=== PATIENT | female | born 1960 | race Caucasian/White ===

== ENCOUNTER 2020-07-14 15:55 | Inpatient (IN) | payer SELFPAY ==
[2020-07-14] MEDS ORDERED: Aspirin 325 MG TAB ONE (16:58)
[2020-07-14] MEDS ORDERED: Diltiazem HCl 125 MG, Admixture Fee 1 EACH in Sodium Chloride 0.9% 100 ML IVPB SCH (17:00)
[2020-07-14 17:47] LABS: Free T4 (Free Thyroxine) 1.51 ng/dL (0.70-1.48)
--- NOTE | 2020-07-14 18:30 | PDOC.HHP ---
Hospitalist HPI - History of Present Illness A. fib with RVR History of Present Illness: 59-year-old female who went to [place] emergency room with palpitation, patient also reports that 1 week ago when she woke up after sleep she felt palpitation, as if she has panic attack, at that time that palpitation episode spontaneously resolved after several minutes and subsequently she had repeat episode of palpitation and 30 minutes later, Patient symptoms started again today with palpitation, and this time symptoms was not improving, denies any associated chest pain dizziness or syncope. Patient denies any orthopnea PND or leg swelling. Patient denies drinking excessive caffeinated product, At [place] emergency room patient was found with A. fib with RVR and Cardizem drip was started, routine laboratory tests showed elevated T4 and low TSH. Patient denies any previous history of thyroid disorder. ED Course: Patient was started on Cardizem drip 15 mg/h, Patient is given aspirin 325 mg and IV fluid 1 L BP: 123/92, MAP: 102, Pulse: 116, Resp: 23, Temp: 98.4 (Oral), Pain: 0, O2 sat: 98, Time: 07/14/2020 16:08. VITAL SIGNS TueJul 14, 2020 16:47 PURA Gray Cullen BP: 125/93, Pulse: 162, Resp: 20, Pain: 0, O2 sat: 98, Time: 07/14/2020 16:47. Hospitalist ROS - Review of Systems Constitutional: denies: fever, chills, sweats, weakness, malaise, other Eyes: denies: pain, vision change, conjunctivae inflammation, eyelid inflammation, redness, other ENT: denies: ear pain, ear discharge, nose pain, nose discharge, nose congestion, mouth pain, mouth swelling, throat pain, throat swelling, other Respiratory: denies: cough, dry, shortness of breath, hemoptysis, SOB with excertion, pleuritic pain, sputum, wheezing, other Cardiovascular: reports: palpitations. denies: chest pain, orthopnea, paroxysmal noc. dyspnea, edema, light headedness, other Gastrointestinal: denies: nausea, vomiting, abdominal pain, diarrhea, constipation, melena, hematochezia, other Genitourinary: denies: dysuria, frequency, incontinence, hematuria, retention, other Musculoskeletal: denies: neck pain, shoulder pain, arm pain, back pain, hand pain, leg pain, foot pain, other Skin: denies: rash, lesions, arnie, bruising, other - Medication Medications: Allergies No Known Allergies Allergy (Unverified 07/14/20 16:54) Resuscitation Status - Order Detail: 07/14/20 18:24 Resuscitation Status Routine Resuscitation Status: FULL: Full Resuscitation Home medication Aspirin 81 mg daily Prinzide 05/19.51 tablet daily Hospitalist History - Past Medical History Other Medical History: Hypertension - Past Surgical History Other Surgical History: Tubal ligation Past psychiatric history reviewed and negative - Family History Other Family History: No strong family history of premature coronary artery disease stroke or cancer - Social History Other Social History: No history of tobacco alcohol or illicit drug abusePatient lives at home, - Exam General Appearance: NAD, awake alert Eye: PERRL, anicteric sclera ENT: normocephalic atraumatic, no oropharyngeal lesions Neck: supple, symmetric, no JVD, no thyromegaly Heart: no murmur, no gallops, no rubs, irregular Respiratory: CTAB, no wheezes, no rales, no ronchi Gastrointestinal: soft, non-tender, non-distended, normal bowel sounds Extremities: no cyanosis, no clubbing, no edema Skin: normal turgor, no lesions Neurological: no focal deficits Musculoskeletal: normal tone, normal strength Psychiatric: normal affect, normal behavior, A&O x 3 Hospitalist Results - Labs Lab results: Troponin I 0.014 ng/mL (< 0.028) 07/14/20 16:56 Additional comment: CBC with Differential Collection DT: TueJul 14, 2020 12:42 White Blood Cell (WBC) Count 10.0 thou/uL 4.8-10.8 Red Blood Cell (RBC) Count 4.49 mill/uL 4.20-5.40 Hemoglobin 12.8 g/dL 12.0-16.0 Hematocrit 40.2 % 36.0-47.0 Mean Corpuscular Volume 89.7 fL 78.0-98.0 Mean Corpuscular Hemoglobin 28.5 pg 27.0-31.0 Mean Corpuscular HGB CONC 31.7 - L g/dL 32.0-36.0 RBC Distribution Width 12.3 % 11.5-14.5 Platelet Count 329 thou/uL 130-400 Mean Platelet Volume 6.9 - L fL 7.4-10.4 %Neutrophils 55.3 % 42.0-75.0 %Lymphocytes 33.7 % 21.0-51.0 %Monocytes 8.7 % 0.0-10.0 %Eosinophils 1.2 % 0.0-10.0 %Basophils 1.1 - H % 0.0-1.0 #Neutrophils 5.5 thou/uL 1.40-6.50 #Lymphocytes 3.4 thou/uL 1.20-3.40 #Monocytes 0.9 - H thou/uL 0.11-0.59 #Eosinphils 0.1 thou/uL 0.0-0.7 #Basophils 0.1 thou/uL 0.0-0.2 LABORATORY TueJul 14, 2020 13:01 MD Mcqueen Robert Measurement Result Units Range Comprehensive Metabolic Panel Collection DT: TueJul 14, 2020 12:42 Sodium 139 mmol/L 136-145 Potassium 4.7 mmol/L 3.5-5.1 Chloride 105 mmol/L 98-107 Carbon Dioxide 22 - L mmol/L 23-31 Anion Gap 17 mmol/L 10-20 BUN (Urea Nitrogen) 23 - H mg/dL 9.8-20.1 Creatinine 1.06 mg/dL 0.6-1.1 Estimated GFR-MDRD 53 Reference Range for Estimated GFR: Greater than 90 mL/min/1.73 m2 NOTE: The MDRD equation has not been validated for use with the elderly (over 70 years of age), women, patients with serious comorbid condition or persons with extremes of body size, muscle mass, or nutritional status. Glucose 125 - H mg/dL 80-115 Calcium 9.5 mg/dL 7.8-10.44 Bilirubin, Total 0.5 mg/dL 0.2-1.2 Protein, Total 8.7 - H g/dL 6.0-8.3 Albumin 4.4 g/dL 3.4-4.8 Globulin 4.3 - H g/dL 2.4-3.5 Alb/Glob Ratio 1.0 - L g/dL 1.2-2.2 Alkaline Phosphatase 109 U/L 40-110 AST (SGOT) 35 - H U/L 5-34 ALT (SGPT) 36 U/L 8-55 LABORATORY TueJul 14, 2020 13:07 MD Mcqueen Robert Measurement Result Units Range Troponin - I w/ Reflex to [facility] Collection DT: TueJul 14, 2020 12:42 Troponin I Less than 0.010 ng/mL < 0.028 Reference Range 0.00 - 0.028 ng/mL Negative 0.029 - 0.29 ng/mL Indeterminate Greater or Equal to 0.3 ng/mL Strongly suggests [place] LABORATORY TueJul 14, 2020 13:13 MD Mcqueen Robert Measurement Result Units Range B type Natriuretic Peptide Collection DT: TueJul 14, 2020 12:42 B type Natriuretic Peptide 294.4 - H pg/mL 0-100 LABORATORY TueJul 14, 2020 13:19 MD Mcqueen Robert Measurement Result Units Range Thyroid Stimulating Hormone Collection DT: TueJul 14, 2020 12:42 Thyroid Stimulating Hormone 0.1354 - L uIU/mL 0.35-4.94 - EKG Interpretation EK lead EKG shows, atrial fibrillation with rapid ventricular response, Rate (beats per minute): 163, ST segments normal, T waves, [place] normal, afib with RVR. - Radiology Interpretation Chest x-ray Status: image reviewed by me Additional Comment: XR Chest 1 View Portable Observe DT: TueJul 14, 2020 12:38, CXRP XR Chest 1 View Portable HISTORY: Palpitations COMPARISON: None FINDINGS: The heart size is normal. The lungs are well expanded without focal areas of consolidation, pneumothorax or pleural effusions. IMPRESSION: No radiographic evidence of acute cardiopulmonary process. Hospitalist H&P A/P - Problem (1) Atrial fibrillation with RVR Code(s): I48.91 - UNSPECIFIED ATRIAL FIBRILLATION Status: Acute (2) Elevated brain natriuretic peptide (BNP) level Code(s): R79.89 - OTHER SPECIFIED ABNORMAL FINDINGS OF BLOOD CHEMISTRY Status: Acute (3) Hyperthyroidism Code(s): E05.90 - THYROTOXICOSIS, UNSP WITHOUT THYROTOXIC CRISIS OR STORM Status: Acute Assessment and Plan: Differential diagnosis thyroiditis, new onset hyperthyroidism (4) Hypertension Code(s): I10 - ESSENTIAL (PRIMARY) HYPERTENSION Status: Chronic Qualifiers: Hypertension type: essential hypertension Qualified Code(s): I10 - Essential (primary) hypertension - Plan Plan: Plan Admission to telemetry floor Cardizem drip 5 mg/h Ultrasound thyroid for hyperthyroidism, Patient will need outpatient endocrinology follow-up for further evaluation Echocardiography for A. fib, Patient has chads 2 score one-point, will continue aspirin, while in hospital we will also continue with Lovenox 1 mg/kg Cardiology will be consulted Telemetry monitoring DVT prophylaxis Lovenox 1 mg/kg subcu twice daily for A. fib GI prophylaxis Pepcid 20 mg twice daily CODE STATUS patient is full code Position plan based on clinical course likely 48 to 72 hours.
[2020-07-14 21:54] LABS: Troponin I 0.018 ng/mL (< 0.028)
[2020-07-14] MEDS ORDERED: Ondansetron PF 4 MG/2 ML Vial IVP PRN (23:30)
[2020-07-14] MEDS ORDERED: Famotidine 20 MG TAB PO SCH ×2 (23:30→23:59)
[2020-07-14] MEDS ORDERED: Ondansetron ODT 4 MG TAB PO PRN (23:30)
[2020-07-14] MEDS ORDERED: Senokot S 8.6-50 MG TAB PO PRN (23:30)
[2020-07-14] MEDS ORDERED: Acetaminophen 325 MG TAB PO PRN (23:30)
[2020-07-14] MEDS ORDERED: HYDROcodone/Acetaminophen 5/325 mg Tablet PO PRN (23:30)
[2020-07-14] MEDS ORDERED: Enoxaparin Sodium 80 MG/0.8 ML SYRINGE SC SCH ×2 (23:30→23:59)
[2020-07-14] MEDS ORDERED: Labetalol HCl 100 MG/20 ML VIAL SLOW IVP PRN (23:30)
[2020-07-14] MEDS ORDERED: Bisacodyl 10 MG SUPP PR PRN (23:30)
[2020-07-14] MEDS ORDERED: Cepastat Lozenges 1 LOZ PO PRN (23:30)
[2020-07-14] MEDS ORDERED: Calcium Carbonate 500 MG ChewTAB PO PRN (23:30)
[2020-07-14] MEDS ORDERED: Sodium Chloride 0.65% Nasal 44 ML BOT EA NARE PRN (23:30)
[2020-07-14] MEDS ORDERED: Diabetic Tussin 200 MG/10 ML UDCUP PO PRN (23:30)
[2020-07-14] MEDS ORDERED: Zolpidem Tartrate 5 MG TAB PO PRN (23:30)
[2020-07-14] MEDS ORDERED: Loratadine 10 MG TAB PO PRN (23:30)
[2020-07-14] MEDS ORDERED: Loperamide HCl 2 MG CAP PO PRN (23:30)
[2020-07-14] MEDS ORDERED: Diltiazem 125 MG in Sodium Chloride 0.9% 100 ML IVPB SCH (23:30)
[2020-07-15 00:44] LABS: Troponin I 0.011 ng/mL (< 0.028)
[2020-07-15 01:31] VITALS: BMI 35.3
[2020-07-15 04:35] LABS: #Basophils 0.1 thou/uL (0.0-0.2); #Eosinphils 0.2 thou/uL (0.0-0.7); #Lymphocytes 4.7 thou/uL (1.20-3.40); #Monocytes 0.9 thou/uL (0.11-0.59); #Neutrophils 5.4 thou/uL (1.40-6.50); %Basophils 1.1 % (0.0-1.0); %Eosinophils 1.8 % (0.0-10.0); %Lymphocytes 41.6 % (21.0-51.0); %Monocytes 7.6 % (0.0-10.0); %Neutrophils 47.9 % (42.0-75.0); Mean Corpuscular HGB CONC 30.7 g/dL (32.0-36.0); Mean Corpuscular Hemoglobin 29.8 pg (27.0-31.0); Mean Corpuscular Volume 96.8 fL (78.0-98.0); Mean Platelet Volume 7.3 fL (7.4-10.4); Platelet Count 308 thou/uL (130-400); RBC Distribution Width 12.2 % (11.5-14.5); Red Blood Cell (RBC) Count 4.38 mill/uL (4.20-5.40); White Blood Cell (WBC) Count 11.3 thou/uL (4.8-10.8)
[2020-07-15 04:38] LABS: ALT (SGPT) 31 U/L (8-55); AST (SGOT) 30 U/L (5-34); Albumin 3.7 g/dL (3.4-4.8); Alkaline Phosphatase 99 U/L (40-110); Anion Gap 18 mmol/L (10-20); BUN (Urea Nitrogen) 20 mg/dL (9.8-20.1); Bilirubin, Total 0.4 mg/dL (0.2-1.2); Calc. Creatinine Clearance 84 mL/min (70-130); Calcium 8.9 mg/dL (7.8-10.44); Carbon Dioxide 15 mmol/L (23-31); Chloride 108 mmol/L (98-107); Glucose 111 mg/dL (80-115); Magnesium 2.2 mg/dL (1.6-2.6); Potassium 4.9 mmol/L (3.5-5.1); Protein, Total 7.7 g/dL (6.0-8.3); Sodium 136 mmol/L (136-145)
[2020-07-15 08:25] LABS: SARS-CoV-2 MS2 Positive; SARS-CoV-2 N Gene Negative; SARS-CoV-2 S Gene Negative; SARS-CoV-2 by NAA Not Detected (NotDetected); SARS-CoV-2 orf1ab Negative
[2020-07-15] MEDS: Enoxaparin Sodium 80 MG/0.8 ML SYRINGE SC SCH ×2 (08:48→20:21)
[2020-07-15] MEDS ORDERED: Aspirin 325 MG TAB PO SCH (09:00)
[2020-07-15] MEDS ORDERED: Famotidine 20 MG TAB PO SCH (09:00)
[2020-07-15] MEDS ORDERED: Lisinopril/Hydrochlorothiazide 10 mg/12.5 mg Tablet PO SCH (09:00)
[2020-07-15] MEDS ORDERED: FLU VACC QS2020-21(6MOS UP)/PF 60 MCG/0.5 ML SYRINGE IM ONE (09:00)
--- NOTE | 2020-07-15 09:25 | ULT ---
THYROID ULTRASOUND: HISTORY: Hyperthyroidism. COMPARISON: None. FINDINGS: Diffuse heterogeneity throughout the thyroid gland. Thyroid nodules: Left thyroid lobe: Solid nodule measuring 0.8 x 0.8 x 1.6 cm. Nodule is isoechoic and distinct margin s. Thyroid isthmus: 0.6 cm. Left thyroid lobe: 1.7 x 4.1 x 2.0 cm. Right thyroid lobe: 2.0 x 4.3 x 1.3 cm. IMPRESSION: Isoechoic solid nodule in the left thyroid lobe. TIRADS level: TR 3, mildly suspicious. Follow-up angie ging in one year. Transcribed Date/Time: 07/15/2020 9:39 AM
[2020-07-15 12:13] LABS: Anion Gap 15 mmol/L (10-20); BUN (Urea Nitrogen) 18 mg/dL (9.8-20.1); Calc. Creatinine Clearance 81 mL/min (70-130); Calcium 9.5 mg/dL (7.8-10.44); Carbon Dioxide 21 mmol/L (23-31); Chloride 105 mmol/L (98-107); Glucose 110 mg/dL (80-115); Potassium 4.8 mmol/L (3.5-5.1); Sodium 136 mmol/L (136-145)
[2020-07-15] MEDS ORDERED: Metoprolol Tartrate 25 MG TAB PO SCH ×2 (14:00→21:00)
[2020-07-15] MEDS ORDERED: Digoxin 0.5 MG/2 ML AMP SLOW IVP SCH (14:45)
[2020-07-15 15:30] LABS: INR-International Normal Ratio 0.9; Prothrombin Time 12.8 sec (12.0-14.7)
[2020-07-15] MEDS ORDERED: Warfarin Sodium 10 MG TAB PO SCH ×2 (17:00→19:15)
--- NOTE | 2020-07-15 19:30 | CON ---
DATE OF CONSULTATION: HISTORY OF PRESENT ILLNESS: A 59-year-old white female without previous cardiac problems. She had an episode one week ago, where she awoke with palpitation, but denied any chest discomfort or shortness of breath. This resolved and then she had another episode 30 minutes later. The episode repeated itself yesterday with a rapid heartbeat. She was sent to doctor's office and was sent to the emergency room, found to be in atrial fibrillation with rapid ventricular response, was started on Cardizem and then transferred here. She has been placed on Lovenox 1 mg/kg b.i.d. Again, she denies any fever, cough, chest discomfort, shortness of breath, or peripheral edema. PAST MEDICAL HISTORY: Hypertension. She states she has had borderline elevated cholesterol in the past. No history of diabetes. MEDICATIONS: 1. Lisinopril/hydrochlorothiazide /.5. 2. Aspirin daily. 3. Red rice yeast. ALLERGIES: NONE. OPERATIONS: Tubal ligation. SOCIAL HISTORY: She does not smoke or drink. FAMILY HISTORY: Father had bypass. Mother had coronary stents. PHYSICAL EXAMINATION: VITAL SIGNS: Blood pressure 123/71 and pulse of 136 and irregularly irregular. HEENT: PERRL. NECK: Supple. CHEST: Clear. CARDIAC: S1 and S2 normal without any S3, S4, or murmurs. Carotid upstrokes normal without bruits. ABDOMEN: Normal bowel sounds. Abdomen is obese. EXTREMITIES: Revealed no clubbing, cyanosis, or edema. NEUROLOGIC: Grossly intact. SKIN: warm and dry. LABORATORY DATA: EKG reveals probable atrial flutter with variable AV block. Hemoglobin 13.0, hematocrit 42.4, white count 11,300, and platelets 308,000. Sodium 136, potassium 4.9, chloride 108, carbon dioxide 15, BUN 20, and creatinine 0.97. Troponin I is normal x4. T4 is slightly elevated at 1.51. TSH is low at 0.1354. IMPRESSION: 1. Paroxysmal atrial fibrillation with episodes last week. 2. Hypertension. 3. Possible hyperthyroidism. Thyroid ultrasound did show a small nodule. 4. Obesity. RECOMMENDATIONS: The patient's CHADS-VASc score is 2 and should be anticoagulated in the future. With the lack of funding, she probably will not be able to afford the newer anticoagulants. She therefore will be started on Coumadin. Also, she will be given a dose of intravenous digoxin and the Cardizem rate will be increased to 80 mg/hour for better rate control. She will be placed on flecainide 50 b.i.d. We did discuss transesophageal echo and electrical cardioversions and the risks - esophageal or teeth damage, , worse heart rhythm, embolic event including stroke, etc. We will follow the patient with you. Job ID: [id number] [facility]
--- NOTE | 2020-07-15 20:08 | PDOC.HOSPP ---
- Subjective Encounter Date: 07/15/20 Encounter Time: 13:00 Subjective: Patient seen and examined for atrial fibrillation with rapid ventricle response. Remains on Cardizem drip. Denies any chest pain, shortness of breath or palpitations. No new focal deficit. Denies any hematochezia or melena. - Objective Vital Signs & Weight: Vital Signs (12 hours) Temp Pulse Resp BP Pulse Ox 07/15/20 15:20 136 H 07/15/20 15:00 97.9 F 118 H 19 120/75 98 07/15/20 11:00 98.7 F 136 H 17 125/82 99 Weight Weight 193 lb I&O: 07/14/20 07/15/20 07/16/20 06:59 06:59 06:59 Intake Total 65 960 Balance 65 960 Result Diagrams: 07/15/20 04:00 07/15/20 11:44 Additional Labs: Abnormal Lab Results - Last 48 hrs 07/14/20 16:56: Free T4 1.51 H 07/15/20 04:00: Chloride 108 H, Carbon Dioxide 15 L, Globulin 4.0 H, Albumin/Globulin Ratio 0.9 L 07/15/20 04:00: WBC 11.3 H, MCHC 30.7 L, MPV 7.3 L, Basophils % 1.1 H, Lymphocytes # 4.7 H, Monocytes # 0.9 H 07/15/20 11:44: Carbon Dioxide 21 L Radiology Reviewed by me: Yes (Chest x-raynegative for infiltrate) EKG Reviewed by me: Yes (Atrial fibrillation with rapid medical response) Hospitalist ROS - Review of Systems Respiratory: denies: cough, dry, shortness of breath, hemoptysis, SOB with excertion, pleuritic pain, sputum, wheezing, other Cardiovascular: reports: palpitations. denies: chest pain, orthopnea, paroxysmal noc. dyspnea, edema, light headedness, other - Medication Medications: Active Medications Generic Name Dose Route Start Last Admin Trade Name Freq PRN Reason Stop Dose Admin Enoxaparin Sodium 80 mg 07/15/20 09:00 07/15/20 08:48 Enoxaparin Sodium 80 Mg/0.8 Ml Syringe SC 80 mg 0900,2100 JOHN Administration - Exam General Appearance: NAD Neck: supple, no JVD Heart: no gallops, no rubs, normal peripheral pulses, irregular Gastrointestinal: non-tender, non-distended, normal bowel sounds, no guarding, no rigidity Extremities: no cyanosis, no clubbing, no edema Extremities - other findings: No calf tenderness Neurological: no new deficit Musculoskeletal: normal tone, normal strength Psychiatric: normal affect, A&O x 3 Hosp A/P - Plan DVT proph w/lovenox Atrial fibrillation with rapid ventricular response Abnormal thyroid studies Hypertension Thyroid nodule Plan: Continue Cardizem drip. Echocardiogram showed normal ejection fraction of 55-60 percent with mild mitral regurgitation. Thyroid studies were normal earlier this year. Patient was advised to follow up on the thyroid nodule. Cardiology input appreciated. Started on flecainide. Cardizem drip rate increased to 8 mg/h. Add low-dose beta-saman for now. AM labs. Continue Lovenox along with warfarin for anticoagulation. Monitor INR
[2020-07-15] MEDS: Famotidine 20 MG TAB PO SCH (20:22)
[2020-07-15] MEDS: Flecainide 50 MG TAB PO SCH (20:22)
[2020-07-16 04:40] LABS: Prothrombin Time 13.7 sec (12.0-14.7)
[2020-07-16 04:46] LABS: Anion Gap 16 mmol/L (10-20); BUN (Urea Nitrogen) 19 mg/dL (9.8-20.1); Calc. Creatinine Clearance 78 mL/min (70-130); Calcium 9.1 mg/dL (7.8-10.44); Carbon Dioxide 21 mmol/L (23-31); Chloride 104 mmol/L (98-107); Glucose 105 mg/dL (80-115); Magnesium 2.1 mg/dL (1.6-2.6); Potassium 4.4 mmol/L (3.5-5.1); Sodium 137 mmol/L (136-145)
[2020-07-16 05:46] LABS: #Basophils 0.1 thou/uL (0.0-0.2); #Eosinphils 0.2 thou/uL (0.0-0.7); #Lymphocytes 4.5 thou/uL (1.20-3.40); #Monocytes 0.8 thou/uL (0.11-0.59); #Neutrophils 5.3 thou/uL (1.40-6.50); %Basophils 0.7 % (0.0-1.0); %Eosinophils 1.7 % (0.0-10.0); %Lymphocytes 41.8 % (21.0-51.0); %Neutrophils 48.8 % (42.0-75.0); Hemoglobin 12.2 g/dL (12.0-16.0); Mean Corpuscular HGB CONC 32.4 g/dL (32.0-36.0); Mean Corpuscular Hemoglobin 29.4 pg (27.0-31.0); Mean Corpuscular Volume 90.9 fL (78.0-98.0); Mean Platelet Volume 7.4 fL (7.4-10.4); Platelet Count 302 thou/uL (130-400); RBC Distribution Width 11.9 % (11.5-14.5); Red Blood Cell (RBC) Count 4.13 mill/uL (4.20-5.40); White Blood Cell (WBC) Count 10.8 thou/uL (4.8-10.8)
[2020-07-16] MEDS: Flecainide 50 MG TAB PO SCH ×2 (08:27→21:34)
[2020-07-16] MEDS: Enoxaparin Sodium 80 MG/0.8 ML SYRINGE SC SCH ×2 (08:27→21:34)
[2020-07-16] MEDS: Famotidine 20 MG TAB PO SCH ×2 (08:27→21:34)
[2020-07-16] MEDS ORDERED: Aspirin 81 mg Enteric Coated Tablet PO SCH (09:00)
[2020-07-16] MEDS: Warfarin Sodium 10 MG TAB PO SCH (17:14)
--- NOTE | 2020-07-16 18:20 | PDOC.HOSPP ---
- Subjective Encounter Date: 07/16/20 Encounter Time: 12:00 Subjective: Patient seen and examined for atrial fibrillation with rapid ventricular response. Rate controlled. Denies any chest pain or shortness of breath - Objective Vital Signs & Weight: Vital Signs (12 hours) Temp Pulse Resp BP Pulse Ox 07/16/20 17:44 98 07/16/20 15:55 97.9 F 78 17 119/71 98 07/16/20 11:35 98.0 F 74 17 117/70 97 07/16/20 07:32 97.8 F 60 17 114/62 97 Weight Weight 193 lb I&O: 07/15/20 07/16/20 07/17/20 06:59 06:59 06:59 Intake Total 65 960 Balance 65 960 Result Diagrams: 07/16/20 04:11 07/16/20 04:11 EKG Reviewed by me: Yes (Sinus rhythm on telemetry) Hospitalist ROS - Review of Systems Cardiovascular: denies: chest pain, palpitations, orthopnea, paroxysmal noc. dyspnea, edema, light headedness, other Gastrointestinal: denies: nausea, vomiting, abdominal pain, diarrhea, constipation, melena, hematochezia, other - Medication Medications: Active Medications Generic Name Dose Route Start Last Admin Trade Name Freq PRN Reason Stop Dose Admin Aspirin 81 mg 07/16/20 09:00 07/16/20 08:27 Aspirin 81 Mg Enteric Coated Tablet PO 81 mg DAILY JOHN Administration Enoxaparin Sodium 80 mg 07/15/20 09:00 07/16/20 08:27 Enoxaparin Sodium 80 Mg/0.8 Ml Syringe SC 80 mg 0900,2100 JOHN Administration Famotidine 20 mg 07/15/20 21:00 07/16/20 08:27 Famotidine 20 Mg Tab PO 20 mg BID JOHN Administration Flecainide Acetate 50 mg 07/15/20 21:00 07/16/20 08:27 Flecainide 50 Mg Tab PO 50 mg Q12HR JOHN Administration - Exam General Appearance: NAD Heart: RRR, no gallops, no rubs, normal peripheral pulses Respiratory: no wheezes, no rales, no ronchi, normal chest expansion Gastrointestinal: non-tender, non-distended, normal bowel sounds, no palpable masses Extremities: no cyanosis, no clubbing, no edema Skin: normal turgor Neurological: no focal deficits, no new deficit Hosp A/P - Plan DVT proph w/lovenox, DVT proph w/SCDs Atrial fibrillation with rapid ventricular response Abnormal thyroid studies Hypertension Thyroid nodule Plan: Continue flecainide with Cardizem drip. Continue Lovenox until INR is therapeutic. Cardiology input appreciated. Beta-blockers discontinued. Monitor labs. Continue telemetry monitoring. Continue other medications as above.
[2020-07-16] MEDS ORDERED: [UNRECOGNIZED DRUG - REMARK] IVPB PRN (21:25)
[2020-07-16] MEDS: Diltiazem 125 MG in Sodium Chloride 0.9% 100 ML IVPB SCH (22:42)
[2020-07-17 05:02] LABS: #Basophils 0.1 thou/uL (0.0-0.2); #Eosinphils 0.2 thou/uL (0.0-0.7); #Lymphocytes 4.3 thou/uL (1.20-3.40); #Monocytes 0.9 thou/uL (0.11-0.59); #Neutrophils 6.1 thou/uL (1.40-6.50); %Eosinophils 1.5 % (0.0-10.0); %Lymphocytes 37.1 % (21.0-51.0); %Monocytes 7.6 % (0.0-10.0); %Neutrophils 52.8 % (42.0-75.0); Mean Corpuscular HGB CONC 33.9 g/dL (32.0-36.0); Mean Corpuscular Hemoglobin 30.5 pg (27.0-31.0); Mean Platelet Volume 7.8 fL (7.4-10.4); Platelet Count 270 thou/uL (130-400); RBC Distribution Width 11.7 % (11.5-14.5); Red Blood Cell (RBC) Count 3.93 mill/uL (4.20-5.40); White Blood Cell (WBC) Count 11.5 thou/uL (4.8-10.8)
[2020-07-17 05:04] LABS: INR-International Normal Ratio 1.2; Prothrombin Time 15.6 sec (12.0-14.7)
[2020-07-17 05:19] LABS: Anion Gap 14 mmol/L (10-20); BUN (Urea Nitrogen) 26 mg/dL (9.8-20.1); Calc. Creatinine Clearance 62 mL/min (70-130); Calcium 8.8 mg/dL (7.8-10.44); Carbon Dioxide 23 mmol/L (23-31); Chloride 104 mmol/L (98-107); Glucose 116 mg/dL (80-115); Potassium 4.1 mmol/L (3.5-5.1); Sodium 137 mmol/L (136-145)
[2020-07-17] MEDS: Famotidine 20 MG TAB PO SCH ×2 (08:31→20:32)
[2020-07-17] MEDS: Flecainide 50 MG TAB PO SCH ×2 (08:31→20:32)
[2020-07-17] MEDS: Enoxaparin Sodium 80 MG/0.8 ML SYRINGE SC SCH ×2 (08:31→20:32)
[2020-07-17] MEDS: Diltiazem 125 MG in Sodium Chloride 0.9% 100 ML IVPB SCH (12:50)
[2020-07-17] MEDS ORDERED: Sodium Chloride 0.9% 500 ML IV SCH (14:00)
[2020-07-17] MEDS ORDERED: Diltiazem 125 MG in Sodium Chloride 0.9% 100 ML IVPB SCH ×2 (15:23→16:42)
[2020-07-17] MEDS: Warfarin Sodium 10 MG TAB PO SCH (17:22)
--- NOTE | 2020-07-17 17:35 | PDOC.HOSPP ---
- Subjective Encounter Date: 07/17/20 Encounter Time: 12:30 Subjective: Patient seen and examined for atrial fibrillation with rapid ventricular response. Denies any chest pain or shortness of breath. Remains on Cardizem drip. Converted to sinus rhythm approximately 1 hour ago. - Objective Vital Signs & Weight: Vital Signs (12 hours) Temp Pulse Resp BP Pulse Ox 07/17/20 16:00 98.5 F 78 17 127/79 99 07/17/20 11:57 98.0 F 78 17 119/69 98 07/17/20 07:51 98.4 F 59 L 17 131/63 98 Weight Weight 192 lb 4.8 oz I&O: 07/16/20 07/17/20 07/18/20 06:59 06:59 06:59 Intake Total 960 1346 Balance 960 1346 Result Diagrams: 07/17/20 04:23 07/17/20 04:23 EKG Reviewed by me: Yes (Sinus rhythm, atrial flutter with RVR earlier) Hospitalist ROS - Review of Systems Cardiovascular: denies: chest pain, palpitations, orthopnea, paroxysmal noc. dyspnea, edema, light headedness, other Gastrointestinal: denies: nausea, vomiting, abdominal pain, diarrhea, constipation, melena, hematochezia, other - Medication Medications: Active Medications Generic Name Dose Route Start Last Admin Trade Name Coyq PRN Reason Stop Dose Admin Enoxaparin Sodium 80 mg 07/15/20 09:00 07/17/20 08:31 Enoxaparin Sodium 80 Mg/0.8 Ml Syringe SC 80 mg 0900,2100 JOHN Administration Famotidine 20 mg 07/15/20 21:00 07/17/20 08:31 Famotidine 20 Mg Tab PO 20 mg BID JOHN Administration Flecainide Acetate 50 mg 07/15/20 21:00 07/17/20 08:31 Flecainide 50 Mg Tab PO 50 mg Q12HR JOHN Administration Warfarin Sodium 10 mg 07/16/20 17:00 07/17/20 17:22 Warfarin Sodium 10 Mg Tab PO 10 mg 1700 JOHN Administration - Exam General Appearance: NAD Neck: supple, no JVD Heart: RRR, no gallops Respiratory: no wheezes, no ronchi Gastrointestinal: soft, non-tender, normal bowel sounds Extremities: no cyanosis, no clubbing Neurological: no new deficit Psychiatric: normal affect, A&O x 3 Hosp A/P - Plan DVT proph w/lovenox, DVT proph w/SCDs Atrial fibrillation/flutter with RVR AKImild Abnormal thyroid studies Hypertension Thyroid nodule Plan: Reduce Cardizem drip to 5 mg/h. Continue flecainide. Continue Lovenox with warfarin. INR 1.2 today. Check PT/INR in a.m. Gentle IV hydration due to mild acute kidney injury that probably appears to be hemodynamically mediated. Continue other medications as above.
[2020-07-18 04:49] LABS: #Basophils 0.1 thou/uL (0.0-0.2); #Eosinphils 0.2 thou/uL (0.0-0.7); #Lymphocytes 3.8 thou/uL (1.20-3.40); #Monocytes 0.8 thou/uL (0.11-0.59); #Neutrophils 5.3 thou/uL (1.40-6.50); %Basophils 1.1 % (0.0-1.0); %Eosinophils 1.9 % (0.0-10.0); %Lymphocytes 37.3 % (21.0-51.0); %Monocytes 7.6 % (0.0-10.0); Hemoglobin 11.3 g/dL (12.0-16.0); Mean Corpuscular HGB CONC 33.7 g/dL (32.0-36.0); Mean Corpuscular Hemoglobin 30.3 pg (27.0-31.0); Mean Corpuscular Volume 89.9 fL (78.0-98.0); Mean Platelet Volume 7.6 fL (7.4-10.4); Platelet Count 268 thou/uL (130-400); RBC Distribution Width 11.8 % (11.5-14.5); Red Blood Cell (RBC) Count 3.73 mill/uL (4.20-5.40); White Blood Cell (WBC) Count 10.2 thou/uL (4.8-10.8)
[2020-07-18 05:00] LABS: INR-International Normal Ratio 1.5; Prothrombin Time 18.5 sec (12.0-14.7)
[2020-07-18 05:10] LABS: Anion Gap 15 mmol/L (10-20); BUN (Urea Nitrogen) 20 mg/dL (9.8-20.1); Calc. Creatinine Clearance 80 mL/min (70-130); Calcium 8.6 mg/dL (7.8-10.44); Carbon Dioxide 22 mmol/L (23-31); Chloride 104 mmol/L (98-107); Glucose 109 mg/dL (80-115); Potassium 4.1 mmol/L (3.5-5.1); Sodium 137 mmol/L (136-145)
[2020-07-18] MEDS: Flecainide 50 MG TAB PO SCH ×2 (09:19→20:45)
[2020-07-18] MEDS: Famotidine 20 MG TAB PO SCH ×2 (09:19→20:45)
[2020-07-18] MEDS: Enoxaparin Sodium 80 MG/0.8 ML SYRINGE SC SCH ×2 (09:19→20:45)
[2020-07-18] MEDS: Warfarin Sodium 10 MG TAB PO SCH (17:17)
--- NOTE | 2020-07-18 19:47 | PDOC.HOSPP ---
- Subjective Encounter Date: 07/18/20 Encounter Time: 10:30 Subjective: Patient seen and examined for atrial fibrillation. Denies any chest pain or shortness of breath. Remains in sinus rhythm. - Objective Vital Signs & Weight: Vital Signs (12 hours) Temp Pulse Resp BP Pulse Ox 07/18/20 15:54 98.9 F 75 17 120/56 L 98 07/18/20 12:00 98.6 F 75 17 145/69 H 99 Weight Weight 192 lb 8 oz I&O: 07/17/20 07/18/20 07/19/20 06:59 06:59 06:59 Intake Total 1346 1520 720 Balance 1346 1520 720 Result Diagrams: 07/18/20 04:07 07/18/20 04:07 Additional Labs: Abnormal Lab Results - Last 48 hrs 07/17/20 04:23: BUN 26 H, Creatinine 1.31 H 07/17/20 04:23: WBC 11.5 H, RBC 3.93 L, Hct 35.4 L, Lymphocytes # 4.3 H, Monocytes # 0.9 H 07/17/20 04:23: PT 15.6 H 07/18/20 04:07: Carbon Dioxide 22 L 07/18/20 04:07: RBC 3.73 L, Hgb 11.3 L, Hct 33.5 L, Basophils % 1.1 H, Lymphocytes # 3.8 H, Monocytes # 0.8 H 07/18/20 04:07: PT 18.5 H EKG Reviewed by me: Yes (Sinus rhythm on telemetry) Hospitalist ROS - Review of Systems Cardiovascular: denies: chest pain, palpitations, orthopnea, paroxysmal noc. dyspnea, edema, light headedness, other Gastrointestinal: denies: nausea, vomiting, abdominal pain, diarrhea, const ipation, melena, hematochezia, other - Medication Medications: Active Medications Generic Name Dose Route Start Last Admin Trade Name Freq PRN Reason Stop Dose Admin Enoxaparin Sodium 80 mg 07/15/20 09:00 07/18/20 09:19 Enoxaparin Sodium 80 Mg/0.8 Ml Syringe SC 80 mg 0900,2100 JOHN Administration Famotidine 20 mg 07/15/20 21:00 07/18/20 09:19 Famotidine 20 Mg Tab PO 20 mg BID JOHN Administration Flecainide Acetate 50 mg 07/15/20 21:00 07/18/20 09:19 Flecainide 50 Mg Tab PO 50 mg Q12HR JOHN Administration Metoprolol Succinate 25 mg 07/18/20 09:00 07/18/20 09:19 Metoprolol Succinate Xl 25 Mg Tab PO 25 mg DAILY JOHN Administration Sodium Chloride 10 ml 07/17/20 21:00 07/18/20 09:20 Flush - Normal Saline 10 Ml Syringe IVF 10 ml Q12HR JOHN Administration Warfarin Sodium 10 mg 07/16/20 17:00 07/18/20 17:17 Warfarin Sodium 10 Mg Tab PO 10 mg 1700 JOHN Administration - Exam General Appearance: NAD Heart: RRR, no gallops Respiratory: no wheezes, no ronchi Gastrointestinal: non-tender, normal bowel sounds Extremities: no cyanosis Neurological: no new deficit Hosp A/P - Plan DVT proph w/lovenox Atrial fibrillation/flutter with RVR S/p Cardizem dripdiscontinued On flecainide Converted to sinus rhythm On Lovenox with warfarin TALIB Improved Abnormal thyroid studies Repeat thyroid studies in 4 to 6 weeks Hypertension Thyroid nodule Plan: Discharge tomorrow morning continue flecainide. Continue Lovenox with warfarin. Continue Toprol-XL. INR 1.5 today. Renal function improved. Check PT/INR in a.m. Discontinue Lovenox once INR is equal to or greater than 2. Risk of anticoagulation discussed with the patientpatient stated understanding.
[2020-07-18] MEDS ORDERED: Atorvastatin Calcium 20 MG TAB PO SCH (21:00)
[2020-07-19 05:07] LABS: Prothrombin Time 22.9 sec (12.0-14.7)
[2020-07-19 07:50] VITALS: BP 146/85; TEMP 96.5
[2020-07-19] MEDS: Flecainide 50 MG TAB PO SCH (08:35)
[2020-07-19] MEDS: Famotidine 20 MG TAB PO SCH (08:35)
[2020-07-19] MEDS: Enoxaparin Sodium 80 MG/0.8 ML SYRINGE SC SCH (08:35)
--- NOTE | 2020-07-19 09:59 | PDOC.DS.DS ---
Provider - Provider Date of Admission: 07/14/20 18:29 Date of Discharge: 07/19/20 Admitting Provider: Leatha Bright MD Consultations: Cardiology (Dr. Vega) Primary Care Physician: [facility] Course - Hospital Course Hospital Course: Discharge diagnosis: 1. Atrial fibrillation with rapid ventricular response 2. Hyperthyroidism 3. Thyroid nodule, needs follow-up imaging in 1 year 4. Acute kidney injury 5. COVID-19 PCR test negative Hospital course: Patient is a pleasant 59-year-old lady who was admitted to the hospital on July 14, 2020 for atrial fibrillation with rapid ventricular response. She was started on Cardizem drip. She was also found to be hyperthyroid, and ultrasound of thyroid showed solid nodule that is mildly suspicious. She needs follow-up imaging in 1 year. She has been advised to follow-up with primary care provider for management of hyperthyroidism. Cardiology service was consulted. Patient was started on flecainide and converted to normal sinus rhythm. 2D echocardiogram showed left ventricle ejection fraction of 55 to 60%, mild mitral regurgitation, sclerotic aortic valve and mild tricuspid regurgitation. In terms of anticoagulation, patient wished to start warfarin due to cost considerations. She received 10 mg of warfarin daily, and her INR gradually increased to 2.0 on July 19, 2020. She is being discharged home on 5 mg warfarin daily and has been advised to have her INR checked in 5 to 7 days through primary care provider's office. Many thanks for allowing me to participate in your patient's care. Please feel free to contact me with any questions or concerns. Discharge destination: Home Total amount of time spent coordinating this discharge: 31 minutes Resuscitation Status: 07/14/20 18:24 Resuscitation Status Routine Resuscitation Status: FULL: Full Resuscitation - Labs Lab Results: 07/18/20 04:07 07/18/20 04:07 Abnormal Lab Results - Last 48 hrs 07/18/20 04:07: Carbon Dioxide 22 L 07/18/20 04:07: RBC 3.73 L, Hgb 11.3 L, Hct 33.5 L, Basophils % 1.1 H, Lymphocytes # 3.8 H, Monocytes # 0.8 H 07/18/20 04:07: PT 18.5 H 07/19/20 04:07: PT 22.9 H - Physical Exam Vitals: Vital Signs (12 hours) Temp Pulse Resp BP BP Pulse Ox 07/19/20 07:48 96.5 F L 70 16 146/85 H 98 07/19/20 04:00 98.3 F 70 19 144/71 H 98 07/19/20 02:42 98 Weight Weight 192 lb 4.8 oz Physical Exam: The patient was seen and examined on the day of discharge. Patient denies chest pain or shortness of breath. Vital signs are stable. S1 and S2 are heard. Lungs are clear to auscultation bilaterally. Plan - Discharge Medications Prescriptions: Flecainide [Tambocor] 50 mg PO Q12HR #60 tab Atorvastatin Calcium [Lipitor] 20 mg PO HS #30 tab Metoprolol Succinate [Toprol XL] 25 mg PO DAILY #30 tab Warfarin Sodium 5 mg PO DAILY #30 tablet Home Medications: Medication Instructions Recorded Confirmed Type Atorvastatin Calcium [Lipitor] 20 mg PO HS #30 tab 07/19/20 Rx Flecainide [Tambocor] 50 mg PO Q12HR #60 tab 07/19/20 Rx Metoprolol Succinate [Toprol XL] 25 mg PO DAILY #30 tab 07/19/20 Rx Warfarin Sodium 5 mg PO DAILY #30 tablet 07/19/20 Rx Allergies: No Known Allergies Allergy (Unverified 07/14/20 16:54) - Discharge Instructions Discharge Instructions:: Repeat thyroid ultrasound in 1 yearPCP to arrange and follow. Follow-up with primary care provider for management of hyperthyroidism. Have your PT/INR checked in 5 days through primary care provider's office. FOCUS: Transition from Acute Care after Discharge GOAL: Successful transition to care in the community YOUR TASKS: (1) review all information outlined in your discharge packet (2) follow any instructions outlined in your discharge packet (3) contact your primary care provider if you have questions or need additional assistance See patient discharge instruction sheet for detailed teaching. Patient verbalizes understanding of medications and is able to verbalize follow-up care. See Discharge Plan for additional discharge information. Patient secured in private vehicle prior to departure. Activity:: Activity as Tolerated Nourishment:: Coumadin Prudent Diet, Heart Healthy Diet - Follow up Plan Referrals: [facility] [Primary Care Provider] - (Arrange screening for outpatient Coumadin Management with INR lab.) Zach Vega MD [Active] - 3-4 Weeks (Please follow up with your cow tester in 3-4 weeks. Call the office to schedule an appointment.) Otilia Tidwell MD [Active] - 3 Days (Please follow up with your Primary Care provider in 7days. Call the office to schedule an appointment.) Disposition: HOME Quality - Stroke/TIA Did you prescribe antithrombotic therapy?: No Specify reason for no DC antithrombotic therapy: Treatment not indicated Did you prescribe anticoagulant for A Fib/Flutter?: Yes Did you prescribe a statin medication?: Yes
== END 2020-07-19 12:40 | disposition home or self-care (01) | DRG 309 ==
LOC: ERS 15:55 → ERHOLD 18:29 → 2NO 23:55
PROVIDERS: ADMIT Internal Medicine; ATTEND Internal Medicine
DX: I48.0 Paroxysmal atrial fibrillation (principal); N17.9 Acute kidney failure, unspecified; Z20.828 Contact with and (suspected) exposure to other viral communicable diseases; E04.1 Nontoxic single thyroid nodule; E05.90 Thyrotoxicosis, unspecified without thyrotoxic crisis or storm; I10 Essential (primary) hypertension; E66.9 Obesity, unspecified; I34.0 Nonrheumatic mitral (valve) insufficiency; Z98.51 Tubal ligation status; Z79.899 Other long term (current) drug therapy; Z68.35 Body mass index [BMI] 35.0-35.9, adult; Z79.82 Long term (current) use of aspirin
CPT/HCPCS: 36415; 76536; 80048; 80053; 83735; 84439; 84481; 85025; 85610; 87635; 93005; 93306; 96365; 96366; J1160; J1650; J3490; U0003

== ENCOUNTER 2021-08-02 09:44 | Emergency (ER) | payer OTHER, SELFPAY ==
[2021-08-02] MEDS ORDERED: Metoprolol Tartrate 5 MG/5 ML VIAL ONE (10:12)
[2021-08-02 10:56] LABS: #Eosinphils 0.1 thou/uL (0.0-0.7); #Lymphocytes 2.1 thou/uL (1.20-3.40); #Monocytes 0.6 thou/uL (0.11-0.59); #Neutrophils 2.9 thou/uL (1.40-6.50); %Basophils 0.3 % (0.0-1.0); %Lymphocytes 36.7 % (21.0-51.0); %Monocytes 10.1 % (0.0-10.0); %Neutrophils 51.8 % (42.0-75.0); Hemoglobin 14.9 g/dL (12.0-16.0); Mean Corpuscular HGB CONC 33.5 g/dL (32.0-36.0); Mean Corpuscular Hemoglobin 29.8 pg (27.0-31.0); Mean Corpuscular Volume 89.1 fL (78.0-98.0); Mean Platelet Volume 7.2 fL (7.4-10.4); Platelet Count 262 thou/uL (130-400); RBC Distribution Width 12.6 % (11.5-14.5); White Blood Cell (WBC) Count 5.6 thou/uL (4.8-10.8)
[2021-08-02 11:07] LABS: INR-International Normal Ratio 1.8; PTT 37.6 sec (22.9-36.1); Prothrombin Time 20.7 sec (12.0-14.7)
[2021-08-02 11:17] LABS: ALT (SGPT) 46 U/L (8-55); AST (SGOT) 50 U/L (5-34); Albumin 4.2 g/dL (3.4-4.8); Alkaline Phosphatase 167 U/L (40-110); Anion Gap 12 mmol/L (10-20); BUN (Urea Nitrogen) 15 mg/dL (9.8-20.1); Bilirubin, Total 0.3 mg/dL (0.2-1.2); CK (CPK) 168 U/L (29-168); Calc. Creatinine Clearance 0 mL/min (70-130); Calcium 9.4 mg/dL (7.8-10.44); Carbon Dioxide 22 mmol/L (23-31); Chloride 106 mmol/L (98-107); Glucose 112 mg/dL (80-115); Potassium 4.5 mmol/L (3.5-5.1); Protein, Total 8.2 g/dL (5.8-8.1); Sodium 135 mmol/L (136-145)
== END 2021-08-02 12:40 | disposition home or self-care (01) ==
LOC: ERS 09:44
DX: I48.20 Chronic atrial fibrillation, unspecified (principal); E78.5 Hyperlipidemia, unspecified; I12.0 Hypertensive chronic kidney disease with stage 5 chronic kidney disease or end stage renal disease; N18.30 Chronic kidney disease, stage 3 unspecified; Z79.899 Other long term (current) drug therapy
CPT/HCPCS: 36415; 80053; 82550; 84484; 85025; 85610; 85730; 93005; 96374

== ENCOUNTER 2022-01-24 04:20 | Inpatient (IN) | payer SELFPAY ==
[2022-01-24 04:47] LABS: #Basophils 0.1 thou/uL (0.0-0.2); #Eosinphils 0.2 thou/uL (0.0-0.7); #Lymphocytes 3.1 thou/uL (1.20-3.40); #Monocytes 0.6 thou/uL (0.11-0.59); #Neutrophils 6.5 thou/uL (1.40-6.50); %Basophils 1.1 % (0.0-1.0); %Eosinophils 1.5 % (0.0-10.0); %Lymphocytes 30.1 % (21.0-51.0); %Monocytes 5.3 % (0.0-10.0); Hemoglobin 14.1 g/dL (12.0-16.0); Mean Corpuscular HGB CONC 32.9 g/dL (32.0-36.0); Mean Corpuscular Hemoglobin 29.3 pg (27.0-31.0); Mean Corpuscular Volume 88.9 fL (78.0-98.0); Mean Platelet Volume 7.1 fL (7.4-10.4); Platelet Count 298 thou/uL (130-400); RBC Distribution Width 13.7 % (11.5-14.5); Red Blood Cell (RBC) Count 4.83 mill/uL (4.20-5.40); White Blood Cell (WBC) Count 10.4 thou/uL (4.8-10.8)
[2022-01-24 04:58] LABS: INR-International Normal Ratio 3.2; Prothrombin Time 33.4 sec (12.0-14.7)
[2022-01-24 05:31] LABS: ALT (SGPT) 88 U/L (8-55); AST (SGOT) 85 U/L (5-34); Albumin 4.1 g/dL (3.4-4.8); Alkaline Phosphatase 308 U/L (40-110); Anion Gap 13 mmol/L (10-20); BUN (Urea Nitrogen) 16 mg/dL (9.8-20.1); Bilirubin, Total 0.9 mg/dL (0.2-1.2); Calc. Creatinine Clearance 0 mL/min (70-130); Calcium 9.6 mg/dL (7.8-10.44); Carbon Dioxide 20 mmol/L (23-31); Chloride 108 mmol/L (98-107); Globulin 4.6 g/dL (2.4-3.5); Glucose 133 mg/dL (80-115); Potassium 4.2 mmol/L (3.5-5.1); Protein, Total 8.7 g/dL (5.8-8.1); Sodium 137 mmol/L (136-145)
[2022-01-24 06:06] LABS: SARS-CoV-2 NAA Rapid Test Not Detected (NotDetected)
[2022-01-24 08:33] LABS: Troponin I Less than 0.010 ng/mL (< 0.028)
[2022-01-24 09:21] VITALS: BMI 39.2
[2022-01-24] MEDS ORDERED: Acetaminophen 650 MG Suppository PR PRN (09:30)
[2022-01-24] MEDS ORDERED: Acetaminophen 325 MG TAB PO PRN (09:30)
[2022-01-24] MEDS ORDERED: Flecainide 50 MG TAB PO SCH (09:45)
[2022-01-24] MEDS ORDERED: Magnesium 2 GM/50 ML(in water) 2 GM in Premix Bag 1 BAG IVPB SCH (09:45)
[2022-01-24] MEDS ORDERED: Warfarin Sodium 3.75 MG HALF.TAB PO PRN (09:56)
[2022-01-24 10:59] LABS: Troponin I Less than 0.010 ng/mL (< 0.028)
[2022-01-24] MEDS: Atorvastatin Calcium 20 MG TAB PO SCH (20:34)
[2022-01-24] MEDS: Flecainide 50 MG TAB PO SCH (20:34)
[2022-01-25 05:05] LABS: #Eosinphils 0.2 thou/uL (0.0-0.7); #Lymphocytes 2.9 thou/uL (1.20-3.40); #Monocytes 0.6 thou/uL (0.11-0.59); #Neutrophils 6.6 thou/uL (1.40-6.50); %Basophils 0.4 % (0.0-1.0); %Eosinophils 1.5 % (0.0-10.0); %Lymphocytes 28.3 % (21.0-51.0); %Monocytes 5.7 % (0.0-10.0); %Neutrophils 64.1 % (42.0-75.0); Hemoglobin 12.9 g/dL (12.0-16.0); Mean Corpuscular HGB CONC 32.3 g/dL (32.0-36.0); Mean Corpuscular Hemoglobin 29.1 pg (27.0-31.0); Platelet Count 289 thou/uL (130-400); RBC Distribution Width 13.6 % (11.5-14.5); Red Blood Cell (RBC) Count 4.45 mill/uL (4.20-5.40); White Blood Cell (WBC) Count 10.3 thou/uL (4.8-10.8)
[2022-01-25 05:12] LABS: INR-International Normal Ratio 2.7; Prothrombin Time 29.3 sec (12.0-14.7)
[2022-01-25 05:28] LABS: Anion Gap 14 mmol/L (10-20); BUN (Urea Nitrogen) 14 mg/dL (9.8-20.1); Calc. Creatinine Clearance 103 mL/min (70-130); Calcium 8.6 mg/dL (7.8-10.44); Carbon Dioxide 21 mmol/L (23-31); Chloride 105 mmol/L (98-107); Glucose 125 mg/dL (80-115); Potassium 3.8 mmol/L (3.5-5.1); Sodium 136 mmol/L (136-145)
[2022-01-25] MEDS: Flecainide 50 MG TAB PO SCH ×2 (08:34→19:41)
[2022-01-25] MEDS ORDERED: Flecainide 50 MG TAB PO SCH (11:30)
[2022-01-25 12:46] LABS: ALT (SGPT) 54 U/L (8-55); AST (SGOT) 32 U/L (5-34); Albumin 3.7 g/dL (3.4-4.8); Alkaline Phosphatase 257 U/L (40-110); Bilirubin, Direct 0.4 mg/dL (0.1-0.3); Bilirubin, Total 1.3 mg/dL (0.2-1.2); Protein, Total 7.9 g/dL (5.8-8.1)
[2022-01-25 13:03] LABS: HBSAg Index 0.32 S/CO (0-0.99); Hep A IgM AB Non-Reactive (NonReactive); Hep A IgM S/CO 0.24 S/CO (0-0.79); Hep B Surf Ag Non-Reactive S/CO (NonReactive); Hep C IgG Ab Non-Reactive (NonReactive); Hep C Index 0.09 S/CO (0-0.79); Hepatitis B Core IgM Abs Non-Reactive (NonReactive)
[2022-01-25] MEDS ORDERED: Warfarin Sodium 2 MG TAB PO SCH (17:00)
[2022-01-25] MEDS: Atorvastatin Calcium 20 MG TAB PO SCH (19:41)
[2022-01-26 04:56] LABS: #Basophils 0.1 thou/uL (0.0-0.2); #Eosinphils 0.2 thou/uL (0.0-0.7); #Lymphocytes 3.6 thou/uL (1.20-3.40); #Monocytes 0.7 thou/uL (0.11-0.59); %Basophils 0.9 % (0.0-1.0); %Eosinophils 1.6 % (0.0-10.0); %Lymphocytes 37.6 % (21.0-51.0); %Monocytes 7.3 % (0.0-10.0); %Neutrophils 52.6 % (42.0-75.0); Hemoglobin 13.3 g/dL (12.0-16.0); Mean Corpuscular HGB CONC 32.3 g/dL (32.0-36.0); Mean Corpuscular Hemoglobin 29.4 pg (27.0-31.0); Mean Platelet Volume 6.9 fL (7.4-10.4); Platelet Count 308 thou/uL (130-400); RBC Distribution Width 13.7 % (11.5-14.5); Red Blood Cell (RBC) Count 4.52 mill/uL (4.20-5.40); White Blood Cell (WBC) Count 9.6 thou/uL (4.8-10.8)
[2022-01-26 05:06] LABS: INR-International Normal Ratio 2.4; Prothrombin Time 26.7 sec (12.0-14.7)
[2022-01-26 05:18] LABS: ALT (SGPT) 53 U/L (8-55); AST (SGOT) 34 U/L (5-34); Albumin 3.8 g/dL (3.4-4.8); Alkaline Phosphatase 255 U/L (40-110); Anion Gap 13 mmol/L (10-20); BUN (Urea Nitrogen) 15 mg/dL (9.8-20.1); Calc. Creatinine Clearance 86 mL/min (70-130); Calcium 9.1 mg/dL (7.8-10.44); Carbon Dioxide 23 mmol/L (23-31); Cardiac Risk 3.2 (Less than 4.5); Chloride 104 mmol/L (98-107); Cholesterol 117 mg/dl (< 200 Desired); Globulin 4.3 g/dL (2.4-3.5); Glucose 109 mg/dL (80-115); HDL Cholesterol 37 mg/dL (>60 Neg Risk); LDL Cholesterol, Calculated 53 mg/dL; Potassium 4.2 mmol/L (3.5-5.1); Protein, Total 8.1 g/dL (5.8-8.1); Sodium 136 mmol/L (136-145); Triglycerides 135 mg/dL (Less than 150)
[2022-01-26] MEDS: Flecainide 50 MG TAB PO SCH (08:21)
[2022-01-26 12:21] VITALS: BP 159/86; TEMP 97.6
== END 2022-01-26 13:51 | disposition home or self-care (01) | DRG 310 ==
LOC: ERS 04:20 → 2SW 06:23 → OBSVTOIN 01-25 11:59
PROVIDERS: ADMIT Internal Medicine; ATTEND Physician Assistant
PROC: 5A2204Z Restoration of Cardiac Rhythm, Single (ICD-10-PCS; principal; 2022-01-26)
DX: I48.0 Paroxysmal atrial fibrillation (principal); Z20.822 Contact with and (suspected) exposure to COVID-19; E78.5 Hyperlipidemia, unspecified; E21.3 Hyperparathyroidism, unspecified; E66.9 Obesity, unspecified; I12.9 Hypertensive chronic kidney disease with stage 1 through stage 4 chronic kidney disease, or unspecified chronic kidney disease; N18.30 Chronic kidney disease, stage 3 unspecified; Z79.899 Other long term (current) drug therapy; Z98.51 Tubal ligation status; Z68.39 Body mass index [BMI] 39.0-39.9, adult
CPT/HCPCS: 36415; 71045; 76705; 80048; 80053; 80061; 80074; 80076; 83735; 84443; 84484; 85025; 85610; 85730; 92960; 93005; 93010; 96366; 96367; G0378; J3475; U0002

== ENCOUNTER 2024-02-17 11:48 | Outpatient (CLI) | payer MEDICARE, OTHER | END 2024-02-17 11:49 | disposition home or self-care (01) | LOC: BICULT 11:48 | PROVIDERS: ATTEND Family Medicine | DX: E04.2 Nontoxic multinodular goiter (principal) | CPT/HCPCS: 76536 ==

== ENCOUNTER 2024-07-11 08:32 | Outpatient (CLI) | payer MEDICARE | END 2024-07-11 08:33 | disposition home or self-care (01) | LOC: BICMAMMO 08:32 | PROVIDERS: ATTEND Family Medicine | DX: Z12.31 Encounter for screening mammogram for malignant neoplasm of breast (principal); Z13.820 Encounter for screening for osteoporosis; M85.851 Other specified disorders of bone density and structure, right thigh; M85.852 Other specified disorders of bone density and structure, left thigh | CPT/HCPCS: 77063; 77067; 77080 ==